=== PATIENT | male | born 1955 | race Caucasian/White ===

== ENCOUNTER → 2018-10-30 08:52 | Outpatient (CLI) | payer MEDICARE, SELFPAY | PROVIDERS: PCP Nurse Practitioner; Visit Provider Physical Medicine & Rehabilitation | DX: M54.5 Low back pain (principal); Z53.20 Procedure and treatment not carried out because of patient's decision for unspecified reasons ==

== ENCOUNTER → 2019-08-06 13:13 | Outpatient (CLI) | payer MEDICARE, SELFPAY | PROVIDERS: PCP Nurse Practitioner; Visit Provider Physical Medicine & Rehabilitation | DX: M46.97 Unspecified inflammatory spondylopathy, lumbosacral region (principal); Z53.20 Procedure and treatment not carried out because of patient's decision for unspecified reasons ==

== ENCOUNTER → 2021-10-12 11:40 | Outpatient (CLI) | payer MEDICARE, SELFPAY | PROVIDERS: PCP Internal Medicine; Referring Provider Physical Medicine & Rehabilitation; Visit Provider Physical Medicine & Rehabilitation | DX: M48.02 Spinal stenosis, cervical region (principal); Z53.20 Procedure and treatment not carried out because of patient's decision for unspecified reasons ==

== ENCOUNTER → 2023-05-16 15:56 | Outpatient (CLI) | payer MEDICARE, SELFPAY ==
[2023-05-16 16:55] LABS: Hematocrit 44.8 % (41-53); Hemoglobin 15.1 g/dL (13.5-17.5); Mean Corpuscular HGB Conc 33.8 % (30-36); Mean Corpuscular Hemoglobin 29.2 PG (26-34); Mean Corpuscular Volume 86.4 fL (80-100); Platelet Count 326 X10^3/uL (150-400); Red Blood Cell Count 5.18 X10^6/uL (4.5-5.9); Red Cell Distribution Width 16.3 % (11.6-14.8)
[2023-05-16 17:15] LABS: Alanine Aminotransferase 19 IU/L (<50); Albumin 4.2 g/dL (3.5-5.0); Albumin Globulin Ratio 1.2 (1.0-2.8); Alkaline Phosphatase 79 U/L (38-126); Aspartate Aminotransferase 23 IU/L (17-59); BUN Creatinine Ratio 22.9 (6-22); Bilirubin Total 0.4 mg/dL (0.2-1.3); Blood Urea Nitrogen 24 mg/dL (9-20); Calcium 9.9 mg/dL (8.4-10.2); Carbon Dioxide 27 mmol/L (22-32); Chloride 102 mmol/L (98-107); Cholesterol 258 mg/dL (140-199); Estimated Glomerular Filt Rate > 60 mL/min (>60); Globulin 3.5 g/dL (1.7-4.1); Glucose 86 mg/dL (80-110); HDL Cholesterol 39 mg/dL (40-60); HEMOLYSIS < 15 (0-50); LDL Cholesterol Calculated 173 mg/dL (<100); Potassium 4.6 mmol/L (3.4-5.1); Sodium 135 mmol/L (137-145); Total Protein 7.7 g/dL (6.3-8.2); Triglycerides 230 mg/dL (35-150)
[2023-05-16 17:45] LABS: Prostate Specific Antigen 2.42 ng/mL (0.10-4.00)
[2023-05-16 17:53] LABS: TSH w/ Reflex to FT4 1.16 uIU/mL (0.47-4.68)
== END ==
PROVIDERS: PCP Internal Medicine; Referring Provider Internal Medicine; Visit Provider Internal Medicine
DX: D75.1 Secondary polycythemia (principal); E78.2 Mixed hyperlipidemia; I25.10 Atherosclerotic heart disease of native coronary artery without angina pectoris
CPT/HCPCS: 36415; 80053; 80061; 84153; 84443; 85027

== ENCOUNTER → 2023-06-16 09:33 | Outpatient (CLI) | payer OTHER, SELFPAY ==
[2023-06-16 10:16] LABS: Add Manual Diff / Slide Review NO; Basophils Absolute Auto 100 /uL (0-100); Basophils Percent Auto 0.7 % (0-2); Eosinophils Absolute Auto 200 /uL (0-450); Eosinophils Percent Auto 1.5 % (2-4); Hemoglobin 16.2 g/dL (13.5-17.5); Lymphocytes Absolute Auto 2000 /uL (1100-4500); Lymphocytes Percent Auto 18.9 % (25-40); Mean Corpuscular HGB Conc 34.4 % (30-36); Mean Corpuscular Hemoglobin 29.6 PG (26-34); Mean Corpuscular Volume 86.1 fL (80-100); Monocytes Absolute Auto 900 /uL (0-900); Monocytes Percent Auto 8.3 % (3-14); Neutrophils Absolute Auto 7500 /uL (1500-7000); Neutrophils Percent Auto 70.6 % (50-75); Platelet Count 343 X10^3/uL (150-400); Red Blood Cell Count 5.46 X10^6/uL (4.5-5.9); Red Cell Distribution Width 16.2 % (11.6-14.8); White Blood Cell Count 10.6 X10^3/uL (4.5-11.0)
[2023-06-16 10:39] LABS: Alanine Aminotransferase 21 IU/L (<50); Albumin Globulin Ratio 1.2 (1.0-2.8); Alkaline Phosphatase 84 U/L (38-126); Aspartate Aminotransferase 23 IU/L (17-59); BUN Creatinine Ratio 17.9 (6-22); Bilirubin Total 0.7 mg/dL (0.2-1.3); Blood Urea Nitrogen 17 mg/dL (9-20); Calcium 9.4 mg/dL (8.4-10.2); Carbon Dioxide 24 mmol/L (22-32); Chloride 103 mmol/L (98-107); Estimated Glomerular Filt Rate > 60 mL/min (>60); Globulin 3.3 g/dL (1.7-4.1); Glucose 100 mg/dL (80-110); HEMOLYSIS < 15 (0-50); Sodium 138 mmol/L (137-145); Total Protein 7.3 g/dL (6.3-8.2)
[2023-06-16 15:20] LABS: Appearance Urine UA CLEAR; Bilirubin Urine UA NEGATIVE (NEGATIVE); Color Urine UA YELLOW; Glucose Urine UA NEGATIVE (Negative); Ketones Urine UA NEGATIVE (NEGATIVE); Leukocyte Esterase Urine UA NEGATIVE (NEGATIVE); Nitrite Urine UA NEGATIVE (Negative); Occult Blood Urine UA TRACE-INTACT (Negative); Protein Urine UA 1+ (Negative); Specific Gravity Urine UA <=1.005 (1.000-1.035); Urobilinogen Urine UA 0.2 E.U./dL (0.2)
[2023-06-16 15:29] LABS: Bacteria Urine None Seen; Culture Indicated Urine Cult Not Indicated; Hyaline Casts Urine 0-1/LPF; RBC Urine 0-1/HPF (0-5/HPF); Squamous Epithelial Cell Urine None Seen (0-5/HPF); WBC Urine 0-1/HPF (0-5/HPF)
== END ==
PROVIDERS: PCP Internal Medicine; Referring Provider Surgery; Visit Provider Surgery
DX: R10.30 Lower abdominal pain, unspecified (principal)
CPT/HCPCS: 36415; 80053; 81001; 85025; 99213

== ENCOUNTER → 2023-06-21 09:43 | Outpatient (CLI) | payer OTHER, SELFPAY ==
--- NOTE | 2023-06-21 11:00 | DI.CT.S_ITS ---
PROCEDURE: CT ABDOMEN PELVIS W CON INDICATIONS: Abdominal pain TECHNIQUE: After the administration of oral and intravenous contrast, axial sections were acquired from the lung bases to the pubic symphysis. Coronal and sagittal reformats were performed. For radiation dose reduction, the following was used: automated exposure control, adjustment of mA and/or kV according to patient size. COMPARISON:[facility], CT, ABDOMEN/PELVIS WITH CONTRAST, 11/11/2015, 14:46. FINDINGS: Image quality: Excellent. Lung bases: No suspicious nodule or consolidation. Emphysematous changes. Heart: No significant findings. ABDOMEN: Liver: No solid mass. Simple cyst in segment 2. Additional stable subcentimeter hypodensities are too small to characterize. Gallbladder: No radiopaque gallstones or wall thickening. Biliary ducts: No biliary dilation. Pancreas: No ductal dilation. Spleen: Size is within normal limits. Adrenal Glands: No adrenal nodules. Kidneys and Ureters: No hydronephrosis. No solid mass. Bilateral simple renal cysts. Additional subcentimeter cortical hypodensities bilaterally are too small to characterize, statistically cysts. No complex renal cystic lesion which requires follow up. Stomach and Bowel: No hiatal hernia. Stomach appears grossly normal. Small and large bowel is normal in caliber, without obstruction. Normal appendix (4/24). Sigmoid diverticulosis, without diverticulitis. No pneumatosis, pneumoperitoneum or portal venous gas. Peritoneum: No abnormal intraperitoneal fluid. No free air. Ventral Wall: Small fat containing umbilical hernia. Abdominal Nodes: No retroperitoneal or mesenteric adenopathy by size criteria. Vessels: Aorta and inferior vena cava are normal in size. Moderate to marked calcified and noncalcified plaque in the abdominal aorta and branch vessels, mildly increased compared to prior. Right common and external iliac and left common/proximal external iliac stents are patent with areas of mural thrombus with no high-grade stenosis. Proximal mesenteric and renal arterial vessels are patent. Patent hepatic, portal, splenic and bilateral renal veins. Circum aortic left renal vein, normal variant. PELVIS: Pelvic Organs: Mild prostatomegaly. Bladder: Unremarkable. Pelvic Nodes: No enlarged lymph nodes. Miscellaneous: No inguinal hernias are seen. Bones: No acute fractures. No aggressive appearing lytic or blastic osseous lesions. Mild multilevel degenerative changes of the spine. IMPRESSION: 1. No acute pathology in the abdomen or pelvis. 2. Sigmoid diverticulosis, without diverticulitis. 3. Bilateral iliac stents are patent with no high-grade stenosis. Moderate to marked atherosclerotic calcification of the abdominal aorta, mildly increased compared to prior. 4. Emphysema in the lung bases. Dictated by: Sangeetha Barnett M.D. on 06/21/2023 at 16:25 Approved by: Sangeetha Barnett M.D. on 06/21/2023 at 16:35
== END ==
PROVIDERS: PCP Internal Medicine; Referring Provider Surgery; Visit Provider Surgery
DX: I70.0 Atherosclerosis of aorta (principal); K57.30 Diverticulosis of large intestine without perforation or abscess without bleeding; R10.9 Unspecified abdominal pain; J43.9 Emphysema, unspecified
CPT/HCPCS: 74177; Q9967

== ENCOUNTER → 2023-11-22 09:11 | Outpatient (CLI) | payer MEDICARE, SELFPAY ==
[2023-11-22 10:25] LABS: Hematocrit 46.6 % (41-53); Hemoglobin 15.8 g/dL (13.5-17.5); Mean Corpuscular HGB Conc 33.9 % (30-36); Mean Corpuscular Hemoglobin 28.7 PG (26-34); Mean Corpuscular Volume 84.6 fL (80-100); Platelet Count 327 X10^3/uL (150-400); Red Cell Distribution Width 18.6 % (11.6-14.8); White Blood Cell Count 10.1 X10^3/uL (4.5-11.0)
[2023-11-22 10:37] LABS: Appearance Urine UA CLEAR; Bilirubin Urine UA NEGATIVE (NEGATIVE); Color Urine UA YELLOW; Glucose Urine UA NEGATIVE (Negative); Ketones Urine UA NEGATIVE (NEGATIVE); Leukocyte Esterase Urine UA NEGATIVE (NEGATIVE); Nitrite Urine UA NEGATIVE (Negative); Occult Blood Urine UA NEGATIVE (Negative); Protein Urine UA 2+ (Negative); Specific Gravity Urine UA >=1.030 (1.000-1.035); Urobilinogen Urine UA 0.2 E.U./dL (0.2); pH Urine UA 5.5 (4.5-8.0)
[2023-11-22 10:57] LABS: Bacteria Urine Occasional (0-1); Culture Indicated Urine Cult Not Indicated; Mucus Urine 1+ (Negative); RBC Urine None Seen (0-5/HPF); Squamous Epithelial Cell Urine None Seen (0-5/HPF); Urine Volume 10mL (spun); WBC Urine None Seen (0-5/HPF)
[2023-11-22 11:10] LABS: Alanine Aminotransferase 22 IU/L (<50); Albumin 4.2 g/dL (3.5-5.0); Albumin Globulin Ratio 1.3 (1.0-2.8); Alkaline Phosphatase 82 U/L (38-126); Aspartate Aminotransferase 24 IU/L (17-59); BUN Creatinine Ratio 22.1 (6-22); Bilirubin Total 0.5 mg/dL (0.2-1.3); Blood Urea Nitrogen 23 mg/dL (9-20); Calcium 9.5 mg/dL (8.4-10.2); Carbon Dioxide 24 mmol/L (22-32); Chloride 108 mmol/L (98-107); Cholesterol 270 mg/dL (140-199); Estimated Glomerular Filt Rate > 60 mL/min (>60); Globulin 3.2 g/dL (1.7-4.1); Glucose 91 mg/dL (80-110); HDL Cholesterol 50 mg/dL (40-60); HEMOLYSIS < 15 (0-50); LDL Cholesterol Calculated 197 mg/dL (<100); Potassium 4.7 mmol/L (3.4-5.1); Sodium 140 mmol/L (137-145); Total Protein 7.4 g/dL (6.3-8.2); Triglycerides 117 mg/dL (35-150)
[2023-11-22 11:38] LABS: Prostate Specific Antigen 3.08 ng/mL (0.10-4.00)
== END ==
PROVIDERS: PCP Internal Medicine; Referring Provider Internal Medicine; Visit Provider Internal Medicine
DX: I25.10 Atherosclerotic heart disease of native coronary artery without angina pectoris (principal); R39.15 Urgency of urination; E78.2 Mixed hyperlipidemia
CPT/HCPCS: 36415; 80053; 80061; 81001; 84153; 85027

== ENCOUNTER → 2023-11-28 15:44 | Outpatient (CLI) | payer MEDICARE, SELFPAY ==
--- NOTE | 2023-11-28 15:45 | DI.CT.S_ITS ---
PROCEDURE: CT ANGIO ABD AORTA RUNOFF INDICATIONS: PAD TECHNIQUE: After the administration of intravenous contrast, 2.5 mm sections acquired from T12 to the feet, with optional delayed image acquisition from the knees to the feet. 3-dimensional maximum intensity projection (MIP) coronal and sagittal reformats, and/or 3-dimensional volume rendering reformatting was then performed. For radiation dose reduction, the following was used: automated exposure control. COMPARISON: None. FINDINGS: Image Quality: Diagnostic. Evaluation of the upper abdomen is limited secondary to respiratory motion. Abdominal aorta: Marked atherosclerotic calcification of the abdominal aorta with calcified and noncalcified plaque. No abdominal aortic aneurysm or dissection. Splanchnic vessels: Celiac artery, superior mesenteric artery bilateral renal arteries and inferior mesenteric artery are patent. Mild ostial stenoses. Accessory right lower pole renal artery which is patent. Right lower extremity: Marked atherosclerotic calcification of the common and external iliac arteries. Patent stent in the common iliac and external iliac artery. Right internal iliac artery is chronically occluded. Right distal external iliac artery is diminutive in caliber with moderate atherosclerotic predominantly noncalcified plaque. Common femoral artery is patent with moderate calcified and noncalcified atherosclerotic plaque. Profundus a is patent with mild multifocal stenoses. Proximal SFA demonstrates a focal moderate stenosis of approximately 50% (4/206). Proximal SFA is diminutive in caliber. Mid SFA is occluded (4/257). The mid to distal SFA reconstitutes via collaterals an is diminutive in caliber throughout its course (4/281). Popliteal artery is patent with mild atherosclerotic plaque. No high-grade stenosis. Below the knee runoff demonstrates patent [employer] and peroneal artery with scattered multifocal stenoses. The dorsalis pedis and distal posterior tibial artery are patent below the ankle mortise. Left lower extremity: Marked atherosclerotic calcification of the common and external iliac arteries. Patent common iliac artery/external iliac artery stent. Internal iliac artery is chronically occluded. Distal external iliac artery is diminutive in caliber with moderate atherosclerosis. Common femoral artery is patent with moderate atherosclerosis. Profundus patent with mild multifocal stenoses. Short segment patent proximal SFA with severe multifocal stenoses. Mid to distal SFA is chronically occluded. Distal SFA is reconstituted via profundal collaterals and is diminutive in caliber. Popliteal artery is patent with a focal moderate stenosis (4/381). Below the knee runoff demonstrates patent [employer] and peroneal artery with scattered multifocal stenoses. The dorsalis pedis and distal posterior tibial artery are patent below the ankle mortise. Lower Chest: Dependent atelectasis. Emphysematous changes. ABDOMEN: Arterial phase imaging limits evaluation of the visceral organs. Liver: No solid mass. Gallbladder: No radiopaque gallstones or wall thickening. Biliary ducts: No biliary dilation. Pancreas: No ductal dilation. Spleen: Size is within normal limits. Adrenal Glands: No adrenal nodules. Kidneys and Ureters: No hydronephrosis. No solid mass. No complex renal cystic lesion which requires follow up. Simple cysts in the bilateral kidneys. Subcentimeter cortical hypodensities are too small to characterize, statistically cysts. No complex cystic lesions which require follow-up. Stomach and Bowel: Normal colonic caliber, without significant wall thickening. Colonic diverticulosis, without diverticulitis. Peritoneum: No abnormal intraperitoneal fluid. No free air. Ventral Wall: No hernia. Abdominal Nodes: No retroperitoneal or mesenteric adenopathy by size criteria. Vessels: Aorta and inferior vena cava are normal in size. PELVIS: Pelvic Organs: Unremarkable. Bladder: Unremarkable. Pelvic Nodes: No enlarged lymph nodes. Miscellaneous: No inguinal hernias are seen. Lipoma in the right anterior thigh measuring 7.5 cm in craniocaudal dimension (5/140). Bones: No aggressive osseous abnormality. No acute fractures. Moderate multilevel degenerative changes with levoconvex curvature centered at L3. IMPRESSION: 1. Right lower extremity: Extensive atherosclerotic disease, as described above. -patent common iliac/external iliac artery stent -mid SFA is chronically occluded. SFA is diminutive in caliber, throughout its course. -patent 3 vessel runoff. 2. Left lower extremity: Extensive atherosclerotic disease, as described above. -patent common iliac/external iliac artery stent -SFA is occluded throughout most of its course with distal reconstitution via profundal collaterals. -patent 3 vessel runoff. 3. Colonic diverticulosis, without diverticulitis. Dictated by: Sangeetha Barnett M.D. on 11/28/2023 at 16:57 Approved by: Sangeetha Barnett M.D. on 11/28/2023 at 17:09
== END ==
PROVIDERS: PCP Internal Medicine; Referring Provider Internal Medicine; Visit Provider Internal Medicine
DX: I70.203 Unspecified atherosclerosis of native arteries of extremities, bilateral legs (principal); K57.90 Diverticulosis of intestine, part unspecified, without perforation or abscess without bleeding
CPT/HCPCS: 75635; Q9967

== ENCOUNTER 2023-12-14 08:50 | Emergency (ER) | payer MEDICARE, SELFPAY ==
[2023-12-14] VITALS (13 sets, daily range): BP systolic 135–186; BP diastolic 61–87; PULSE 54–66; RESP 14–16; TEMP 36.5; O2SAT 78–100; BMI 23.6
--- NOTE | 2023-12-14 09:16 | DI.RAD.S_ITS ---
PROCEDURE: XR CHEST 1V INDICATIONS: chest pain TECHNIQUE: One view of the chest was acquired. COMPARISON: None. FINDINGS: Surgical changes and devices: None. Lungs and pleura: Lungs are clear. No pleural effusions or pneumothorax. Mediastinum: Mediastinal contours appear normal. Heart size is normal. Bones and chest wall: No suspicious bony lesions. Overlying soft tissues appear unremarkable. IMPRESSION: No acute cardiopulmonary abnormality is seen. Dictated by: Wayne Suarez M.D. on 12/14/2023 at 9:34 Approved by: Wayne Suarez M.D. on 12/14/2023 at 9:35
[2023-12-14 09:23] LABS: INR 0.9 (0.9-1.3); Prothrombin Time 10.3 SECONDS (9.4-12.5)
--- NOTE | 2023-12-14 09:23 | DI.CT.S_ITS ---
PROCEDURE: CT HEAD/BRAIN WO CON INDICATIONS: vertigo, dizziness TECHNIQUE: Noncontrast 4.5 mm thick angled axial sections acquired from the foramen magnum to the vertex, with coronal and sagittal reformats. For radiation dose reduction, the following was used: automated exposure control, adjustment of mA and/or kV according to patient size. COMPARISON: None. FINDINGS: Image quality: Diagnostic. CSF spaces: Basal cisterns are patent. No extra-axial fluid collections. The ventricles are symmetric in size and shape. Brain: No intracranial bleeds or masses. There is cerebral volume loss for age, with resultant ventricular and sulcal prominence. There are periventricular and deep white matter chronic small vessel ischemic changes. There is intracranial internal carotid artery atherosclerosis. Skull and face: Calvarium and visualized facial bones appear intact, without suspicious lesions. Sinuses: Visualized sinuses and mastoids are clear. IMPRESSION: No cause for patient's symptoms is identified. No acute intracranial pathology. Dictated by: Wayne Suarez M.D. on 12/14/2023 at 9:47 Approved by: Wayne Suarez M.D. on 12/14/2023 at 9:48
[2023-12-14 09:26] LABS: PTT Partial Thromboplastin Tim 25 SECONDS (25.1-36.5)
[2023-12-14 09:29] LABS: Alanine Aminotransferase 23 IU/L (<50); Albumin 4.5 g/dL (3.5-5.0); Albumin Globulin Ratio 1.4 (1.0-2.8); Alkaline Phosphatase 78 U/L (38-126); BUN Creatinine Ratio 20.4 (6-22); Bilirubin Total 0.8 mg/dL (0.2-1.3); Blood Urea Nitrogen 20 mg/dL (9-20); Calcium 8.8 mg/dL (8.4-10.2); Carbon Dioxide 25 mmol/L (22-32); Chloride 107 mmol/L (98-107); Creatine Kinase 85 U/L (55-170); Estimated Glomerular Filt Rate > 60 mL/min (>60); Globulin 3.3 g/dL (1.7-4.1); Glucose 103 mg/dL (80-110); Lipase 155 U/L (23-300); Sodium 138 mmol/L (137-145); Total Protein 7.8 g/dL (6.3-8.2)
[2023-12-14 09:30] LABS: HEMOLYSIS 68 (0-50)
[2023-12-14 09:31] LABS: Potassium 4.8 mmol/L (3.4-5.1)
[2023-12-14 09:33] LABS: Aspartate Aminotransferase 29 IU/L (17-59); Magnesium 2.1 mg/dL (1.6-2.3)
[2023-12-14 09:35] LABS: Add Manual Diff / Slide Review NO; Basophils Absolute Auto 100 /uL (0-100); Basophils Percent Auto 0.6 % (0-2); Eosinophils Absolute Auto 200 /uL (0-450); Eosinophils Percent Auto 1.9 % (2-4); Hemoglobin 17.2 g/dL (13.5-17.5); Lymphocytes Absolute Auto 2200 /uL (1100-4500); Lymphocytes Percent Auto 20.9 % (25-40); Mean Corpuscular HGB Conc 33.7 % (30-36); Mean Corpuscular Hemoglobin 28.8 PG (26-34); Mean Corpuscular Volume 85.5 fL (80-100); Monocytes Absolute Auto 1000 /uL (0-900); Monocytes Percent Auto 9.7 % (3-14); Neutrophils Absolute Auto 7000 /uL (1500-7000); Neutrophils Percent Auto 66.9 % (50-75); Platelet Count 240 X10^3/uL (150-400); Red Blood Cell Count 5.97 X10^6/uL (4.5-5.9); Red Cell Distribution Width 17.8 % (11.6-14.8); White Blood Cell Count 10.4 X10^3/uL (4.5-11.0)
[2023-12-14 09:39] LABS: Troponin I < 0.012 ng/mL (0.01-0.034)
[2023-12-14 09:39] LABS: Urine Volume 10mL (spun)
[2023-12-14 09:41] LABS: Bacteria Urine None Seen; RBC Urine 0-1/HPF (0-5/HPF); Squamous Epithelial Cell Urine None Seen (0-5/HPF); WBC Urine None Seen (0-5/HPF)
[2023-12-14] MEDS: MECLIZINE HCL 12.5 MG TABLET 50 MG PO (09:50)
--- NOTE | 2023-12-14 10:00 | ED.DIZZY ---
HPI - Dizziness General Chief Complaint: Dizziness Stated Complaint: Vertigo/Dizziness Time Seen by Provider: 12/14/23 09:23 Mode of arrival: EMS History of Present Illness HPI Narrative: 68-year-old with history of peripheral vascular disease status post bilateral iliac stenting, history of polycythemia, complains of recent episode yesterday of dizziness, slight spinning sensation, resolved spontaneously, no further current through the day, woke up this morning 530, felt well, 630 this morning started feeling dizzy with spinning sensation, has felt unsteady with his gait, some nausea without emesis, had brief decreased responsiveness requiring family member to gently shake him, he responded quickly, no incontinence to urine or stool, no shaking episodes. No focal weakness to face arm or leg, no visual field deficits, difficulty with walking due to dizziness when he moves his body or his head. No previous known stroke or TIA, no brain surgeries or trauma known, takes aspirin but no other blood thinner medications. No recent cough cold fever chills shortness of breath, no history of allergies or rhinorrhea or nasal congestion. No changes in medications. Related Data Home Medications Medication Instructions Recorded Confirmed aspirin 81 mg tablet,delayed 81 mg PO DAILY 01/18/22 11/22/23 release triamcinolone acetonide 55 mcg 1 spray intranasal DAILY 01/18/22 11/22/23 nasal spray aerosol (Nasacort) Previous Rx's Medication Instructions Recorded rosuvastatin 20 mg tablet 20 mg PO DAILY #90 tabs 11/22/23 meclizine 25 mg tablet 25 mg PO TID 7 days #21 tabs 12/14/23 Allergies Allergy/AdvReac Type Severity Reaction Status Date / Time erythromycin base Allergy Severe Hives Verified 11/22/23 07:39 [From Erythrocin] codiene AdvReac Severe Nausea Uncoded 11/22/23 07:39 Review of Systems Review of Systems Narrative: as per HPI Patient History Medical History (Updated 12/14/23 @ 12:52 by Flip Rodriguez MD) Urinary urgency Peripheral arterial disease Generalized anxiety disorder Cervical radiculopathy Cervicalgia Chronic low back pain Polycythemia (~2017) Ocular migraine Tobacco use Coronary artery disease Allergic rhinitis GERD without esophagitis Mixed hyperlipidemia Surgical History Anesthesia S/P coronary artery stent placement Family History Father Cancer Brother Cancer Social History details: Partner, two grown daughters, Vericept Smoking Status: Current every day smoker Smoking Status: Current every day smoker Exam Narrative Exam Narrative: GENERAL: Well-developed patient, in mild distress. HEAD: Atraumatic. Normocephalic. EYES: Pupils equal round and reactive. Extraocular motions intact. No scleral icterus. No injection or drainage. ENT: Nose without bleeding, purulent drainage. Throat without erythema, tonsillar hypertrophy or exudate. Airway patent. NECK: Trachea midline. Non tender CARDIOVASCULAR: Regular rate and rhythm without murmurs, gallops, or rubs. RESPIRATORY: Clear to auscultation. Breath sounds equal bilaterally. No wheezes, rales, or rhonchi. GASTROINTESTINAL: Abdomen soft, non-tender, nondistended. EXTREMITIES: No edema or joint tenderness. BACK: Nontender without deformity or crepitance. No flank tenderness. NEURO: AOx3. Cranial nerves 2-12 intact. Has dizziness vertigo symptoms with isolated head movements and changes in truncal position. Flnqaa-fv-ovvg testing normal. Motor 5/5 bilateral upper extremities. Motor 5/5 bilateral lower extremities. SKIN: No rash or erythema of visible areas Initial Vital Signs Initial Vital Signs: Vital Signs Pulse Rate 62 12/14/23 08:53 Blood Pressure 176/79 H 12/14/23 08:53 Pulse Oximetry 99 12/14/23 08:53 Course Orders Ordered: Discontinued Medications Diphenhydramine HCl (Diphenhydramine 50 Mg/Ml Vial) 25 mg IV NOW ONE Stop: 12/14/23 12:08 Last Admin: 12/14/23 12:57 Dose: Not Given Documented By: GLORIA Sodium Chloride (Normal Saline 0.9%) 1,000 mls @ 500 mls/hr IV BOLUS ONE Stop: 12/14/23 12:18 Last Infusion: 12/14/23 12:41 Dose: Infused Documented By: Admin: 12/14/23 10:34 Dose: 500 mls/hr Documented By: VALERIE Lorazepam (Lorazepam 2 Mg/Ml Inj) 0.5 mg IV NOW ONE Stop: 12/14/23 12:08 Last Admin: 12/14/23 12:42 Dose: Not Given Documented By: GLORIA Meclizine HCl (Meclizine Hcl 12.5 Mg Tablet) 50 mg PO NOW ONE Stop: 12/14/23 09:25 Last Admin: 12/14/23 09:50 Dose: 50 mg Documented By: VALERIE Ondansetron HCl (Ondansetron 4 Mg/2 Ml Inj) 4 mg IV NOW ONE Stop: 12/14/23 10:22 Last Admin: 12/14/23 10:57 Dose: Not Given Documented By: VALERIE Vital Signs Vital signs: Vital Signs - 8 hr 12/14/23 08:53 12/14/23 08:53 12/14/23 09:00 Temperature Pulse Rate 62 Respiratory Rate Blood Pressure 176/79 H 166/87 H Pulse Oximetry 99 Oxygen Delivery Method 12/14/23 09:00 12/14/23 09:10 12/14/23 09:36 Temperature 97.7 F Pulse Rate 62 66 Respiratory Rate 16 Blood Pressure 166/87 H Pulse Oximetry 99 99 100 Oxygen Delivery Method Room Air 12/14/23 09:53 12/14/23 09:53 12/14/23 10:00 Temperature Pulse Rate 62 55 L Respiratory Rate Blood Pressure 149/70 H Pulse Oximetry 99 100 Oxygen Delivery Method 12/14/23 10:00 12/14/23 10:30 12/14/23 10:30 Temperature Pulse Rate 54 L Respiratory Rate Blood Pressure 146/71 H 135/61 Pulse Oximetry 99 Oxygen Delivery Method 12/14/23 11:00 12/14/23 11:00 12/14/23 11:34 Temperature Pulse Rate 57 L Respiratory Rate 15 Blood Pressure 175/75 H Pulse Oximetry 99 78 L Oxygen Delivery Method 12/14/23 11:37 12/14/23 11:37 12/14/23 11:40 Temperature Pulse Rate 56 L Respiratory Rate Blood Pressure 181/79 H 167/79 H Pulse Oximetry 99 Oxygen Delivery Method 12/14/23 11:40 12/14/23 12:00 12/14/23 12:00 Temperature Pulse Rate 55 L 56 L Respiratory Rate 15 Blood Pressure 186/85 H Pulse Oximetry 100 100 Oxygen Delivery Method MDM - Dizziness Lab Data Attestation: I reviewed the patient's lab results. 12/14/23 09:06 06/05/24 09:06 Labs: Lab Results 12/14/23 12/14/23 Range/Units 09:00 09:06 WBC 10.4 (4.5-11.0) X10^3/uL RBC 5.97 H (4.5-5.9) X10^6/uL Hgb 17.2 (13.5-17.5) g/dL Hct 51.0 (41-53) % MCV 85.5 (80-100) fL MCH 28.8 (26-34) PG MCHC 33.7 (30-36) % RDW 17.8 H (11.6-14.8) % Plt Count 240 (150-400) X10^3/uL Neut % (Auto) 66.9 (50-75) % Lymph % (Auto) 20.9 L (25-40) % [place] % (Auto) 9.7 (3-14) % Eos % (Auto) 1.9 L (2-4) % Baso % (Auto) 0.6 (0-2) % Neut # (Auto) 7000 (0272-3832) /uL Lymph # (Auto) 2200 (9091-7355) /uL [place] # (Auto) 1000 H (0-900) /uL Eos # (Auto) 200 (0-450) /uL Baso # (Auto) 100 (0-100) /uL PT 10.3 (9.4-12.5) SECONDS INR 0.9 (0.9-1.3) APTT 25 L (25.1-36.5) SECONDS Sodium 138 (137-145) mmol/L Potassium 4.8 (3.4-5.1) mmol/L Chloride 107 (98-107) mmol/L Carbon Dioxide 25 (22-32) mmol/L BUN 20 (9-20) mg/dL Creatinine 0.98 (0.66-1.25) mg/dL Estimated GFR > 60 (>60) mL/min BUN/Creatinine Ratio 20.4 (6-22) Glucose 103 (80-110) mg/dL Calcium 8.8 (8.4-10.2) mg/dL Magnesium 2.1 (1.6-2.3) mg/dL Total Bilirubin 0.8 (0.2-1.3) mg/dL AST 29 (17-59) IU/L ALT 23 (<50) IU/L Alkaline Phosphatase 78 (38-126) U/L Total Creatine Kinase 85 (55-170) U/L Troponin I < 0.012 (0.01-0.034) ng/mL Total Protein 7.8 (6.3-8.2) g/dL Albumin 4.5 (3.5-5.0) g/dL Globulin 3.3 (1.7-4.1) g/dL Albumin/Globulin Ratio 1.4 (1.0-2.8) Lipase 155 (23-300) U/L Urine RBC 0-1/hpf (0-5/HPF) Urine WBC None seen (0-5/HPF) Ur Squamous Epith Cells None seen (0-5/HPF) Urine Bacteria None seen (None) Vol Urine Centrifuged 10ml (spun) Urine Dip Bedside Urine Glucose Negative Bedside Urine Bilirubin - Negative Bedside Urine Ketone - Negative Urine Specific [place] 1.005 Bedside Urine Occult Blood +/- Bedside Urine pH 6.0 Bedside Urine Protein +/- 15 Bedside Urine Urobilinogen - Negative Bedside Urine Nitrite - Negative Bedside Urine Leukocytes - Negative Esterase Imaging Data Chest x-ray: Radiologist's Impression: [address] [address] XRay Report Signed Patient: Yaron Long MR#: [id number] : 1955 Acct:[id number] Age/Sex: 68 / M Date of Service: 12/14/23 Loc: ED Accession Number: [id number] Procedure: XR chest 1V Ordering Provider: Flip Rodriguez MD PROCEDURE: XR CHEST 1V INDICATIONS: chest pain TECHNIQUE: One view of the chest was acquired. COMPARISON: None. FINDINGS: Surgical changes and devices: None. Lungs and pleura: Lungs are clear. No pleural effusions or pneumothorax. Mediastinum: Mediastinal contours appear normal. Heart size is normal. Bones and chest wall: No suspicious bony lesions. Overlying soft tissues appear unremarkable. IMPRESSION: No acute cardiopulmonary abnormality is seen. Dictated by: Wayne Suarez M.D. on 12/14/2023 at 9:34 Approved by: Wayne Suarez M.D. on 12/14/2023 at 9:35 CT scan - head: Radiologist's Impression: [address] [address] [address] Scan Report Signed Patient: Yaron Long MR#: [id number] : 1955 Acct:[id number] Age/Sex: 68 / M Date of Service: 12/14/23 Loc: ED Accession Number: [id number] Procedure: CT head/brain wo con Ordering Provider: Flip Rodriguez MD PROCEDURE: CT HEAD/BRAIN WO CON INDICATIONS: vertigo, dizziness TECHNIQUE: Noncontrast 4.5 mm thick angled axial sections acquired from the foramen magnum to the vertex, with coronal and sagittal reformats. For radiation dose reduction, the following was used: automated exposure control, adjustment of mA and/or kV according to patient size. COMPARISON: None. FINDINGS: Image quality: Diagnostic. CSF spaces: Basal cisterns are patent. No extra-axial fluid collections. The ventricles are symmetric in size and shape. Brain: No intracranial bleeds or masses. There is cerebral volume loss for age, with resultant ventricular and sulcal prominence. There are periventricular and deep white matter chronic small vessel ischemic changes. There is intracranial internal carotid artery atherosclerosis. Skull and face: Calvarium and visualized facial bones appear intact, without suspicious lesions. Sinuses: Visualized sinuses and mastoids are clear. IMPRESSION: No cause for patient's symptoms is identified. No acute intracranial pathology. Dictated by: Wayne Suarez M.D. on 12/14/2023 at 9:47 Approved by: Wayne Suarez M.D. on 12/14/2023 at 9:48 CT Angio Head and Neck: Radiologist's Impression: [address] [address] [address] Scan Report Signed Patient: Yaron Long MR#: [id number] : 1955 Acct:[id number] Age/Sex: 68 / M Date of Service: 12/14/23 Loc: ED Accession Number: [id number] Procedure: CT angio head and neck Ordering Provider: Flip Rodriguez MD PROCEDURE: CT ANGIO HEAD AND NECK INDICATIONS: acute dizzy/vertigo TECHNIQUE: After the administration of intravenous contrast, 1 mm thick sections acquired from the aortic arch through the [place]. 3-dimensional pcgdvky-cnwwminuu-adclysejzf (MIP) and/or volume rendering reformats were acquired of the central intracranial vasculature and neck separately. For radiation dose reduction, the following was used: automated exposure control, adjustment of mA and/or kV according to patient size. COMPARISON: None. FINDINGS: Image quality: Diagnostic. BRAIN: Please refer to same day CT of the head HEAD CT ANGIOGRAPHY: Anterior circulation: Intracranial internal carotid arteries are normal in size and flow with atherosclerotic vascular calcifications. The flow within the paired anterior cerebral arteries is normal and symmetric. The flow within the middle cerebral arteries is normal and symmetric. The anterior communicating artery is seen. No aneurysms are seen. Posterior circulation: Visualized portions of the vertebral arteries demonstrate normal caliber, and join to form a normal appearing basilar artery. Flow within the posterior cerebral arteries is normal and symmetric. No aneurysms are seen. NECK CT ANGIOGRAPHY: Carotid system: The great vessels demonstrate a conventional anatomy as they arise from the aortic arch with atherosclerotic vascular calcifications. Moderate stenosis of the left subclavian artery proximally. Moderate stenosis of the right subclavian artery after the takeoff of the vertebral artery. The common carotid arteries demonstrate normal caliber and courses. The bifurcation regions demonstrate coarse calcifications with less than 50% stenosis. The internal carotid arteries demonstrate normal calibers and courses. Posterior circulation: Moderate stenosis at the origins of both vertebral arteries. The more superior extracranial portions of both vertebral arteries also demonstrate normal courses and calibers. They join to form a normal appearing basilar artery. Soft tissues: Visualized neck soft tissues demonstrate no suspicious abnormalities. Centrilobular emphysematous changes involving the visualized lungs. Ground-glass opacity at the right apex versus sub solid nodule. The ground-glass measures 1.8 cm, the solid component measures 5 mm. Bones: No suspicious bony lesions. Degenerative changes of the spine. Visualized cervical spine appears normally aligned. IMPRESSION: No significant intracranial arterial abnormality is seen. Moderate stenosis involving the proximal subclavian arteries bilaterally and origins of the bilateral vertebral arteries. Otherwise, the arteries of the neck are patent and normal in caliber. Ground-glass opacity at the right apex versus subsolid nodule with ground-glass component measuring 1.8 cm and the solid component measuring 5 mm. Recommend follow-up chest CT in 3 months. Any quantitative measurements of stenosis were performed using NASCET criteria. Dictated by: Wayne Suarez M.D. on 12/14/2023 at 11:30 Approved by: Wayne Suarez M.D. on 12/14/2023 at 11:39 ECG Data Attestation: I personally reviewed and interpreted this ECG as follows: Interpretation: Normal sinus rhythm with rate of 61, no obvious ST segment elevation or depression changes. DC 138, QRS 92, QTC 404. MDM Narrative Medical decision making narrative: 68-year-old male with dizziness, afebrile, EKG shows normal sinus rhythm without obvious ischemic changes, troponin negative, electrolytes unremarkable, CBC unremarkable, chest x-ray negative, CT head negative, trial of meclizine. Abrupt onset and some syncopal symptoms, consider neurology consultation. CTA head and neck vessels negative. Neurology consultation pending. Case discussed with Neurology at [facility] Dr. Wasserman, feels that this is worse with changes in position position and better at rest, with good bzdzxl-is-szir testing, suspects peripheral cause, doubts central cause, advises trial of meclizine. Hold further imaging and workup for now. Patient feels better with oral meclizine only, other medications canceled. We will discharge patient on meclizine for the next few days. Follow up with the PCP in the next couple of days advised, return precautions discussed. Home with family. Instructed not to drive or operate machinery until symptoms resolved 1335, blood pressure on discharge noted to have 160 on one arm, 190 on the other arm, no chest pain, consideration for CT angiogram of the chest, patient declined, he will follow up further as an outpatient. Critical Care Time Critical Care Time Critical Care Time: Yes Total Critical Care Time: 31 Attestation: The high probability of a clinically significant, sudden or life threatening deterioration of the [cerebrovascular, neurologic, cardiopulmonary] system(s) required my full and direct attention, intervention and personal management. The aggregate critical care time was [31] minutes. This time is in addition to time spent performing reported procedures but includes the following: [x] Data Review and interpretation [x] Patient assessment and monitoring of vital signs [x] Documentation [x] Medication orders and management Discharge Plan Departure Patient Disposition: Home Clinical Impression: Dizziness, Vertigo Instructions: DI for Vertigo Activity Restrictions/Additional Instructions: Dizziness and spinning symptoms this morning, good ebdgrg-bh-kugj testing, CT head noncontrast brain imaging showed no acute changes per radiologist's report, CT angiogram neck vessels showed no narrowing or thrombosis changes. Case discussed with neurologist Dr. Andrés Daniel at [facility], who felt symptoms were consistent with peripheral vestibular symptoms, not concerning at this time for central stroke. He suggested a trial of meclizine which was given, and in fact he had significant improvement in symptoms. Avoid driving and spinning and rapid changes in head position and body position, as they can cause increased spinning sensation, leading to a fall. Consider taking meclizine for the next week or so, as per neurologist recommendation. Follow up with your regular provider in the next 2-3 days to reassess symptoms. Return to this/nearest emergency department for any change worsening symptoms or any concerns prior Prescriptions: New meclizine 25 mg tablet 25 mg PO TID 7 Days Qty: 21 0RF No Action aspirin 81 mg tablet,delayed release (DR/EC) 81 mg PO DAILY triamcinolone acetonide [Nasacort] 55 mcg aerosol,spray 1 spray intranasal DAILY Rx Instructions: administer into each nostril rosuvastatin 20 mg tablet 20 mg PO DAILY Qty: 90 3RF Referrals: Mateo Mello MD [Primary Care Provider] - Stand Alone Forms: Patient Portal/API
--- NOTE | 2023-12-14 10:19 | DI.CT.S_ITS ---
PROCEDURE: CT ANGIO HEAD AND NECK INDICATIONS: acute dizzy/vertigo TECHNIQUE: After the administration of intravenous contrast, 1 mm thick sections acquired from the aortic arch through the [place]. 3-dimensional dvjsjpq-ahruqrxjc-fmufimdpom (MIP) and/or volume rendering reformats were acquired of the central intracranial vasculature and neck separately. For radiation dose reduction, the following was used: automated exposure control, adjustment of mA and/or kV according to patient size. COMPARISON: None. FINDINGS: Image quality: Diagnostic. BRAIN: Please refer to same day CT of the head HEAD CT ANGIOGRAPHY: Anterior circulation: Intracranial internal carotid arteries are normal in size and flow with atherosclerotic vascular calcifications. The flow within the paired anterior cerebral arteries is normal and symmetric. The flow within the middle cerebral arteries is normal and symmetric. The anterior communicating artery is seen. No aneurysms are seen. Posterior circulation: Visualized portions of the vertebral arteries demonstrate normal caliber, and join to form a normal appearing basilar artery. Flow within the posterior cerebral arteries is normal and symmetric. No aneurysms are seen. NECK CT ANGIOGRAPHY: Carotid system: The great vessels demonstrate a conventional anatomy as they arise from the aortic arch with atherosclerotic vascular calcifications. Moderate stenosis of the left subclavian artery proximally. Moderate stenosis of the right subclavian artery after the takeoff of the vertebral artery. The common carotid arteries demonstrate normal caliber and courses. The bifurcation regions demonstrate coarse calcifications with less than 50% stenosis. The internal carotid arteries demonstrate normal calibers and courses. Posterior circulation: Moderate stenosis at the origins of both vertebral arteries. The more superior extracranial portions of both vertebral arteries also demonstrate normal courses and calibers. They join to form a normal appearing basilar artery. Soft tissues: Visualized neck soft tissues demonstrate no suspicious abnormalities. Centrilobular emphysematous changes involving the visualized lungs. Ground-glass opacity at the right apex versus sub solid nodule. The ground-glass measures 1.8 cm, the solid component measures 5 mm. Bones: No suspicious bony lesions. Degenerative changes of the spine. Visualized cervical spine appears normally aligned. IMPRESSION: No significant intracranial arterial abnormality is seen. Moderate stenosis involving the proximal subclavian arteries bilaterally and origins of the bilateral vertebral arteries. Otherwise, the arteries of the neck are patent and normal in caliber. Ground-glass opacity at the right apex versus subsolid nodule with ground-glass component measuring 1.8 cm and the solid component measuring 5 mm. Recommend follow-up chest CT in 3 months. Any quantitative measurements of stenosis were performed using NASCET criteria. Dictated by: Wayne Suarez M.D. on 12/14/2023 at 11:30 Approved by: Wayne Saurez M.D. on 12/14/2023 at 11:39
[2023-12-14] MEDS: SODIUM CHLORIDE 0.9% 1,000 ML 500 ML IV (10:34)
--- NOTE | 2023-12-14 13:36 | PC.NURSE ---
The patient was concerned about blood pressure on his arm left arm of 198/88. His right arm pressure was taken and it was 164/73. Provider was made aware and the patient was offered to stay and receive further studies. He was informed that this could be due to a potentially dangerous condition. paitient declined further studies and wanted to go home
== END 2023-12-14 13:41 | disposition home or self-care (01) ==
PROVIDERS: Emergency Provider Emergency Medicine; PCP Internal Medicine
DX: R42 Dizziness and giddiness (principal); R07.9 Chest pain, unspecified
CPT/HCPCS: 36415; 70450; 70496; 70498; 71045; 80053; 81003; 81015; 82550; 83690; 83735; 84484; 85025; 85610; 85730; 87086; 93005; 96360; 96361; 99284; 99285; J1200; J2060; J2405; Q9967

== ENCOUNTER → 2024-11-05 17:07 | Outpatient (CLI) | payer MEDICARE, SELFPAY | PROVIDERS: PCP Internal Medicine; Visit Provider Nurse Practitioner Family | DX: S91.009A Unspecified open wound, unspecified ankle, initial encounter (principal); X58.XXXA Exposure to other specified factors, initial encounter | CPT/HCPCS: 87070; 87075; 87205 ==

== ENCOUNTER 2024-11-10 08:04 | Emergency (ER) | payer MEDICARE, SELFPAY ==
[2024-11-10 08:14] VITALS: BP 138/66; PULSE 71; RESP 16; TEMP 36.4; O2SAT 98; BMI 23.6
--- NOTE | 2024-11-10 09:11 | PC.NURSE ---
States 10 days ago he was bit by something. Pt reports he was seen at [facility] who cultured his wound and was given a cream. States cream has not done anything; reports the wound seems to be getting worse. Pt states he has been pouring hydrogen peroxide on wound and states he thinks that is helping--pt advised to withhold from hydrogen peroxide. Pt states wound culture was negative. Round red sensitive to touch wound; no open sores. Redness and skin flaking noted.
--- NOTE | 2024-11-10 09:47 | ED.WOUNDLAC ---
HPI - Wound/Laceration General Chief Complaint: Wound/Laceration Stated Complaint: bug bite on R ankle, occurred 7 days ago Time Seen by Provider: 11/10/24 09:37 Source: patient and RN notes reviewed Mode of arrival: Ambulatory Limitations: no limitations History of Present Illness HPI narrative: 69-year-old male no reported medical issues presents with complaint of concern of bug bite or other cause to his right ankle. Patient noticed a white spot about a week before 11/05/2024. Continue to grow and became red painful and itchy. Patient was seen at the walk-in clinic was given mupirocin and cephalexin. He was had about 5 days' worth and he states it seems to have grown a little bit. It is no longer red it has never had any drainage but it was still painful and has grown a little bit in size. He was also prescribed valacyclovir for possible shingles but patient states he did not think that it was shingles and did not take it. He has not had any fevers or systemic symptoms. There is no longer red that is little bit more bruise discoloration. He was using hydrogen peroxide on it but has stopped. He has been washing it daily. He was unsure did not see if he had a bite or something else that occurred other than there was a white head initially. States he was not on any daily medications. Has not allergy to erythromycin and codeine. Dr. Mello is his primary care physician. He does note he had a brown recluse bite when he was young and did have to have an excision of an area in the bottom of his foot. Related Data Home Medications Medication Instructions Recorded Confirmed aspirin 81 mg tablet,delayed 81 mg PO DAILY 01/18/22 10/08/24 release triamcinolone acetonide 55 mcg 1 spray intranasal DAILY 01/18/22 10/08/24 nasal spray aerosol (Nasacort) ezetimibe 10 mg tablet 10 mg PO DAILY 11/05/24 11/05/24 nitroglycerin 0.4 mg sublingual mg sublingual 11/05/24 11/05/24 tablet Previous Rx's Medication Instructions Recorded rosuvastatin 20 mg tablet 20 mg PO DAILY #90 tabs 11/22/23 cephalexin 500 mg capsule 500 mg PO QID 7 days #28 caps 11/05/24 mupirocin 2 % topical ointment 1 applic topical TID #15 grams 11/05/24 valacyclovir 1 gram tablet 1,000 mg PO TID 7 days #21 tabs 11/05/24 doxycycline hyclate 100 mg tablet 100 mg PO BID 7 days #14 tabs 11/10/24 Allergies Allergy/AdvReac Type Severity Reaction Status Date / Time erythromycin base Allergy Severe Hives Verified 11/05/24 16:56 [From Erythrocin] codiene AdvReac Severe Nausea Uncoded 11/05/24 16:56 Review of Systems Review of Systems ROS Unobtainable: All systems reviewed & are unremarkable except as noted in HPI and below Patient History Medical History Pulmonary nodule Urinary urgency Peripheral arterial disease Generalized anxiety disorder Cervical radiculopathy Cervicalgia Chronic low back pain Polycythemia (~2017) Ocular migraine Tobacco use Coronary artery disease Allergic rhinitis GERD without esophagitis Mixed hyperlipidemia Surgical History Anesthesia S/P coronary artery stent placement Family History Father Cancer Brother Cancer Social History details: Partner, two grown daughters, [employer] Smoking Status: Current every day smoker Smoking Status: Current every day smoker tobacco type: cigarettes Exam Narrative Exam Narrative: GENERAL: Alert and oriented x three, well-appearing male in mild distress HEENT: Head normocephalic, atraumatic, EOMI, pupils reactive, face symmetric, moist mucous membranes NECK: Supple, full range of motion CARDIOVASCULAR: Regular rate and rhythm without murmurs, rubs or gallops. RESPIRATORY: Breath sounds equal bilaterally, no wheezes rales or rhonchi. ABDOMEN: Soft, nontender. Normoactive bowel sounds all 4 quadrants. No guarding or rebound, rigidity, no mass : No CVA tenderness EXTREMITIES: Normal range of motion, no clubbing or edema. Neurovascularly intact. Patient has about a quarter-sized area on his right calf just lateral to the Achilles tendon, there some slight induration but it was actually more ecchymotic. There is no erythema. There was no drainage. There was no palpable fluctuance. There is a little bit of dried skin and hyperkeratotic change. Slightly tender to touch. Patient has full range of motion. Tendons nontender. He was no other warmth, no swelling or other skin changes. There is no signs of necrosis. NEUROLOGICAL: Cranial nerves II through XII grossly intact. Moving all extremities SKIN: Warm, dry, no petechiae, no rashes or lesions otherwise noted. Initial Vital Signs Initial Vital Signs: Vital Signs Temperature 97.5 F L 11/10/24 08:14 Pulse Rate 71 11/10/24 08:14 Respiratory Rate 16 11/10/24 08:14 Blood Pressure 138/66 11/10/24 08:14 Pulse Oximetry 98 11/10/24 08:14 Oxygen Delivery Method Room Air 11/10/24 08:14 Course Vital Signs Vital signs: Vital Signs - 8 hr 11/10/24 10:13 Pulse Rate 66 Respiratory Rate 17 Pulse Oximetry 98 Oxygen Delivery Method Room Air MDM - Wound/Laceration MDM Narrative Medical decision making narrative: Discussed with patient may still has a little bit of cellulitis I think it might be starting to improve although he states it has grown a little bit so we will change his antibiotic to little broader spectrum from cephalexin. He can continue with mupirocin. Discussed with the patient I agree do not think that he was shingles. Did discuss possibility of brown recluse bite he never saw he got poked or had any other injury but if not healing after 2nd round antibiotics would have him follow up for biopsy, etcetera. Patient did have a wound culture and Gram stain at the walk-in clinic but he states there was no drainage was a dry swab that showed no growth, cells or organisms. Discharge Plan Departure Patient Disposition: Home Clinical Impression: Cellulitis of leg, right Instructions: DI for Cellulitis -- Adult Activity Restrictions/Additional Instructions: I would recommend stopping your current antibiotic starting a broader spectrum to see if this improves your symptoms. Continue with daily wound care, can use warm compresses 3-4 times daily. Start the new oral antibiotics today. Prescriptions sent to [facility] in [place]. If the area is not improving but does not appear to be newly infected I would have you follow up after you have completed your antibiotics. Please return for fevers, increasing redness, swelling, new drainage, rapidly worsening pain or other new or concerning changes. Prescriptions: New doxycycline hyclate 100 mg tablet 100 mg PO BID 7 Days Qty: 14 0RF No Action nitroglycerin 0.4 mg tablet, sublingual sublingual ezetimibe 10 mg tablet 10 mg PO DAILY valacyclovir 1 gram tablet 1,000 mg PO TID 7 Days Qty: 21 0RF cephalexin 500 mg capsule 500 mg PO QID 7 Days Qty: 28 0RF mupirocin 2 % ointment 1 applic topical TID Qty: 15 0RF aspirin 81 mg tablet,delayed release (DR/EC) 81 mg PO DAILY triamcinolone acetonide [Nasacort] 55 mcg aerosol,spray 1 spray intranasal DAILY Rx Instructions: administer into each nostril rosuvastatin 20 mg tablet 20 mg PO DAILY Qty: 90 3RF Referrals: Mateo Mello MD [Primary Care Provider] - Stand Alone Forms: Patient Portal/API/Survey
[2024-11-10 10:13] VITALS: PULSE 66; RESP 17; O2SAT 98
== END 2024-11-10 10:14 | disposition home or self-care (01) ==
PROVIDERS: Emergency Provider Emergency Medicine; PCP Internal Medicine
DX: L03.115 Cellulitis of right lower limb (principal)
CPT/HCPCS: 99281; 99283

== ENCOUNTER → 2024-11-15 11:49 | Outpatient (CLI) | payer MEDICARE, SELFPAY ==
[2024-11-15 12:40] LABS: Hematocrit 52.6 % (41-53); Hemoglobin 17.9 g/dL (13.5-17.5); Mean Corpuscular HGB Conc 34.1 % (30-36); Mean Corpuscular Hemoglobin 30.8 PG (26-34); Mean Corpuscular Volume 90.2 fL (80-100); Platelet Count 291 X10^3/uL (150-400); Red Blood Cell Count 5.84 X10^6/uL (4.5-5.9); Red Cell Distribution Width 15.6 % (11.6-14.8)
[2024-11-15 13:02] LABS: Aspartate Aminotransferase 33 IU/L (17-59); BUN Creatinine Ratio 20.3 (6-22); Blood Urea Nitrogen 25 mg/dL (9-20); Calcium 9.6 mg/dL (8.4-10.2); Carbon Dioxide 26 mmol/L (22-32); Chloride 103 mmol/L (98-107); Cholesterol 263 mg/dL (140-199); Estimated Glomerular Filt Rate > 60 mL/min (>60); Glucose 84 mg/dL (70-99); HDL Cholesterol 35 mg/dL (40-60); LDL Cholesterol Calculated 175 mg/dL (<100); Potassium 4.8 mmol/L (3.4-5.1); Sodium 139 mmol/L (137-145); Triglycerides 267 mg/dL (35-150)
[2024-11-15 13:04] LABS: HEMOLYSIS 52 (0-50)
[2024-11-15 13:32] LABS: Prostate Specific Antigen 3.08 ng/mL (0.10-4.00)
[2024-11-15 13:35] LABS: Testosterone 336 ng/dL (71.8-623)
[2024-11-15 13:36] LABS: TSH w/ Reflex to FT4 1.08 uIU/mL (0.47-4.68)
== END ==
PROVIDERS: PCP Internal Medicine; Referring Provider Internal Medicine; Visit Provider Internal Medicine
DX: E78.2 Mixed hyperlipidemia (principal); N40.1 Benign prostatic hyperplasia with lower urinary tract symptoms; I25.10 Atherosclerotic heart disease of native coronary artery without angina pectoris; N13.8 Other obstructive and reflux uropathy; R79.89 Other specified abnormal findings of blood chemistry
CPT/HCPCS: 36415; 80048; 80061; 84153; 84403; 84443; 84450; 85027

== ENCOUNTER 2025-02-07 06:33 | Day surgery (SDC) | payer MEDICARE, SELFPAY ==
--- NOTE | 2025-02-07 | PATH_ITS ---
[facility] Accession Number: [id number] No. of containers..05 Tissue . 01 Material submitted: . PART A: duodenum - DUODENAL BIOPSY PART B: duodenum bulb - DUODENAL BULB PART C: gastrointestinal site - ANTRUM BIOPSY PART D: colon - COLON, ASCENDING POLYP PART E: esophagus, E-G Junction - GE JUNCTION . 01 Diagnosis: A. DUODENUM, BIOPSY: Duodenal mucosa with no diagnostic alteration. Diagnostic features of celiac disease are not identified. . B. DUODENAL BULB, BIOPSY: Duodenal mucosa with no diagnostic alteration. Diagnostic features of celiac disease are not identified. . C. ANTRUM, BIOPSY: Gastric antral-type mucosa with focal goblet cells, see note. Mild chronic inflammation. Mild reactive gastropathy. No Helicobacter organisms identified on routine histology. . D. ASCENDING COLON POLYP, BIOPSY: Tubular adenoma. . E. GASTROESOPHAGEAL JUNCTION, BIOPSY: Gastroesophageal junction mucosa with focal erosion, mixed inflammation, and reactive changes. No intestinal metaplasia or dysplasia is identified. . Note: C. The presence of focal goblet cells could reflect proximity to the pylorus. The differential diagnosis includes a minute focus of intestinal metaplasia. Clinical and endoscopic correlation is recommended. No dysplasia is seen. . E. A PAS stain is negative for fungal organisms (control positive). [facility] 02/16/2025 1321 Local . 01 Electronically signed: . Jayy Mondragon MD, Dermatopathologist NPI- [id number] . 01 Gross description: . Part A: DUODENAL BIOPSY: Received in formalin are 2 fragment(s) of day, soft tissue measuring 0.2 x 0.2 x 0.2 cm to 0.3 x 0.3 x 0.2 cm submitted entirely in 1 cassette(s) Part B: DUODENAL BULB: Received in formalin are 3 fragment(s) of day, soft tissue measuring 0.1 x 0.1 x 0.1 cm to 0.3 x 0.2 x 0.2 cm submitted entirely in 1 cassette(s) Part C: ANTRUM BIOPSY: Received in formalin are 3 fragment(s) of day, soft tissue measuring 0.2 x 0.2 x 0.2 cm to 0.4 x 0.2 x 0.2 cm submitted entirely in 1 cassette(s) Part D: COLON, ASCENDING POLYP: Received in formalin is 1 fragment(s) of day, soft tissue measuring 1.0 x 0.5 x 0.4 cm submitted entirely in 1 cassette(s) Part E: GE JUNCTION: Received in formalin are multiple fragment(s) of day, soft tissue measuring 0.1 x 0.1 x 0.1 cm to 0.4 x 0.3 x 0.2 cm submitted entirely in 1 cassette(s) /MILLI 02/13/2025 0041 Local . 01 Pathologist provided ICD-10: D12.6, K21.9, Z12.11 . 01 CPT . 707578, 838175, 599078, 150852, 449829, 221140 Specimen Comment: A courtesy copy of this report has been sent to [phone] Performed at: [address] [facility] [address], [place], [place] [id number] MD Michael Ruano MD Phone: [phone]
[2025-02-07] MEDS: LACTATED RINGERS 1,000 ML 42 ML IV (07:32)
[2025-02-07 07:33] VITALS: BP 160/86; PULSE 76; RESP 16; TEMP 36.2; O2SAT 97
--- NOTE | 2025-02-07 07:42 | SUR.PREOP ---
pt drank 3 oz at 0630. case will be delayed till 8:30 per anesthesia
--- NOTE | 2025-02-07 07:44 | P.HP_ITS ---
History of Present Illness History of Present Illness Date Patient Seen: 02/07/25 Time Patient Seen: 07:44 Chief complaint: EGD/Colonoscopy Narrative: Yaron is a 69-year-old man who presents for an EGD and colonoscopy due to new onset GERD and colon cancer screening. See the prior office note for details. [facility] Medical History Pulmonary nodule Urinary urgency Peripheral arterial disease Generalized anxiety disorder Cervical radiculopathy Cervicalgia Chronic low back pain Polycythemia (~2017) Ocular migraine Tobacco use Coronary artery disease Allergic rhinitis GERD without esophagitis Mixed hyperlipidemia Surgical History Anesthesia S/P coronary artery stent placement Family History Father Cancer Brother Cancer Social History details: Partner, two grown daughters, Actimize alcohol intake: current Meds Home Medications and Allergies Home Medications ?Medication ?Instructions ?Recorded ?Confirmed ?Type aspirin 81 mg tablet,delayed 81 mg PO DAILY 01/18/22 0 11/15/24 History release triamcinolone acetonide 55 mcg 1 spray intranasal DESTINEE Y 01/18/22 11/15/24 History nasal spray aerosol (Nasacort) mupirocin 2 % topical ointment 1 applic topical TID #1 5 grams 11/05/24 11/15/24 Rx nitroglycerin 0.4 mg sublingual mg sublingual 11/05/24 11/15/24 History tablet Allergies Allergy/AdvReac Type Severity Reaction Status Date / Time erythromycin base (From Allergy Severe Hives Verified 02/07/25 07:24 Erythrocin) rosuvastatin AdvReac Intermediate Diarrhea Verified 02/07/25 07:24 Exam Vital Signs (past 8 hours): - 02/07/25 07:33 Temperature 97.2 F L Pulse Rate 76 Respiratory Rate 16 Blood Pressure 160/86 H Pulse Oximetry 97 Oxygen Delivery Method Room Air Oxygen Delivery Method Room Air Const General: healthy appearing Assessment & Plan Assessment and plan (1) GERD without esophagitis: Status: Acute (2) Colon cancer screening: Status: Acute Plan EGD and colonoscopy Time-Based Coding :: [TOTAL MINUTES] spent with patient and on the chart (including review of chart, obtaining history, exam, reviewing outside data, placing orders, documenting exam and treatment plan, and counseling patient) on [DATE]. PROFEE Bar Turner Document charge(s): No
--- NOTE | 2025-02-07 08:55 | SUR.OPER ---
Endoscope [id number] used for EGD portion of procedure
[2025-02-07 09:23] VITALS: BP 112/59; PULSE 66; RESP 16; TEMP 36.1; O2SAT 94
--- NOTE | 2025-02-07 09:24 | PM.OP.EC ---
Operative Date/Time/Diagnoses Date of procedure: 02/07/25 Time of procedure: 09:24 Pre-op diagnosis: GERD and colon cancer screening Post-op diagnosis: same Procedure & Clinicians Study performed: EGD and colonoscopy Same procedure(s) as scheduled: Yes Surgeon: Harjinder Martinez Anesthesia Type: MAC +/- Procedure Notes Procedure in detail: Surgeon: Harjinder Martinez MD Anesthesia: Denae Main HYDROMETEOROLOGICAL TECHNICIAN Procedure in detail: A timeout was performed. A bite blocked was placed and monitors were attached to the patient. The patient was positioned in the left lateral decubitus position. Sedation was administered. Once the patient was sedated the endoscope was inserted through the bite block and passed through the esophagus and stomach and into the duodenum. Mucosa in the second portion of the duodenum appeared normal and random biopsies were taken with cold forceps. There was a small shallow ulcer in the duodenal bulb and random biopsies were taken from the duodenal bulb mucosa with cold forceps.. We then withdrew the scope into the stomach. There was mild antritis and random biopsies were taken with cold forceps from the antrum. The endoscope was retroflexed and no abnormalities were found. The endoscope was straightned and withdrawn into the esophagus. There was some irregular appearing mucosa at the GE junction and some distal esophagitis and biopsies were taken with cold forceps from the GE junction and distal esophagus. The rest of the esophagus appeared normal. EGD findings: Small shallow ulcer in the duodenal polyp, mild antritis and irregular mucosa around the GE junction Next we repositioned the patient for a colonoscopy. A digital rectal exam was performed and was normal. The colonoscope was inserted and advanced to the cecum. The appendiceal orifice was identified and photographed. The scope was slowly withdrawn over greater than 6 minutes. There was 5 mm polyp in the ascending colon removed with a cold snare. The scope was retroflexed in the rectum and no other abnormalities were found. Colonoscopy findings: 5 mm polyp in the ascending colon Total procedural EBL: 5 mL Scope withdrawal time: 9 minutes Sedation minutes: 26 minutes Post-procedure Disposition: PACU
[2025-02-07 09:28] VITALS: BP 111/55; PULSE 66; RESP 16; O2SAT 97
[2025-02-07 09:33] VITALS: BP 118/55; PULSE 70; RESP 15; O2SAT 97
[2025-02-07 09:35] VITALS: BP 146/65; PULSE 71; RESP 10; O2SAT 99
[2025-02-07 09:47] VITALS: BP 160/76; PULSE 76; RESP 20; O2SAT 98
== END 2025-02-07 09:49 | disposition home or self-care (01) ==
PROVIDERS: PCP Internal Medicine; Referring Provider Surgery; Visit Provider Surgery
PROC: 0DJ08ZZ Inspection of Upper Intestinal Tract, Via Natural or Artificial Opening Endoscopic (ICD-10-PCS; CPT 45385; principal; 2025-02-07 07:45)
PROC: 0DJD8ZZ Inspection of Lower Intestinal Tract, Via Natural or Artificial Opening Endoscopic (ICD-10-PCS; CPT 45378; 2025-02-07 07:45)
DX: Z12.11 Encounter for screening for malignant neoplasm of colon (principal); K21.9 Gastro-esophageal reflux disease without esophagitis; K29.50 Unspecified chronic gastritis without bleeding; D12.2 Benign neoplasm of ascending colon
CPT/HCPCS: 45385; 43239; J2704

== ENCOUNTER → 2025-06-03 16:41 | Outpatient (CLI) | payer MEDICARE, SELFPAY ==
[2025-06-03 18:08] LABS: Hematocrit 52.0 % (41-53); Hemoglobin 17.7 g/dL (13.5-17.5); Mean Corpuscular HGB Conc 34.0 % (30-36); Mean Corpuscular Hemoglobin 30.4 PG (26-34); Mean Corpuscular Volume 89.5 fL (80-100); Platelet Count 303 X10^3/uL (150-400)
[2025-06-03 18:37] LABS: Alanine Aminotransferase 24 IU/L (<50); Albumin 4.4 g/dL (3.5-5.0); Albumin Globulin Ratio 1.4 (1.0-2.8); Alkaline Phosphatase 77 U/L (38-126); Blood Urea Nitrogen 23 mg/dL (9-20); Calcium 9.6 mg/dL (8.4-10.2); Carbon Dioxide 27 mmol/L (22-32); Chloride 103 mmol/L (98-107); Cholesterol 293 mg/dL (140-199); Estimated Glomerular Filt Rate > 60 mL/min (>60); Globulin 3.1 g/dL (1.7-4.1); Glucose 71 mg/dL (70-99); HDL Cholesterol 46 mg/dL (40-60); HEMOLYSIS 19 (0-50); Potassium 5.2 mmol/L (3.4-5.1); Sodium 138 mmol/L (137-145); Total Protein 7.5 g/dL (6.3-8.2); Triglycerides 271 mg/dL (35-150)
== END ==
PROVIDERS: PCP Internal Medicine; Referring Provider Internal Medicine; Visit Provider Internal Medicine
DX: I25.10 Atherosclerotic heart disease of native coronary artery without angina pectoris (principal); E78.2 Mixed hyperlipidemia; G45.9 Transient cerebral ischemic attack, unspecified
CPT/HCPCS: 36415; 80053; 80061; 85027

== ENCOUNTER → 2025-06-14 14:06 | Outpatient (CLI) | payer MEDICARE, SELFPAY ==
--- NOTE | 2025-06-14 14:08 | DI.CT.S_ITS ---
PROCEDURE: CT ANGIO HEAD AND NECK INDICATIONS: tia TECHNIQUE: After the administration of intravenous contrast, 1 mm thick sections acquired from the aortic arch through the [place] of [place]. 3-dimensional vrwjwdg-tendjqthl-vqdxwitfgp (MIP) and/or volume rendering reformats were acquired of the central intracranial vasculature and neck separately. For radiation dose reduction, the following was used: automated exposure control, adjustment of mA and/or kV according to patient size. COMPARISON: [facility], CT, CT ANGIO HEAD AND NECK, 12/14/2023, 11:11. FINDINGS: Image quality: Diagnostic. Cerebral CT Angiogram: Internal carotid arteries: No acute findings. Intracranial ICA are patent with no significant stenosis. No occlusion. No aneurysm. Anterior cerebral arteries: Unremarkable. No significant stenosis. No occlusion. No aneurysm. Middle cerebral arteries: Unremarkable. No significant stenosis. No occlusion. No aneurysm. Posterior cerebral arteries: Unremarkable. No significant stenosis. No occlusion. No aneurysm. Basilar artery: Diminutive with areas of high-grade stenosis and short segment occlusion (5/118, /). Vertebral arteries: Unremarkable as visualized. Dural venous sinuses: Unremarkable given phase of enhancement. Other: Arterial phase appearance of the brain parenchyma is unremarkable. Neck CT Angiogram: Internal carotid arteries: Coarse calcifications of the bifurcations with less than 50% stenosis of the proximal ICAs bilaterally. No dissection or occlusion. Common carotid arteries: Unremarkable. No significant stenosis. No dissection or occlusion. External carotid arteries: Unremarkable. No occlusion. Vertebral arteries: Moderate stenosis of the origins bilaterally. The left vertebral artery is dominant. The right vertebral artery is diminutive with multiple areas of loss of opacification, new compared to prior. Aortic Arch and Mediastinum: Partially visualized aortic arch unremarkable without evidence of aneurysm. Moderate stenosis of the origin of the bilateral subclavian arteries is redemonstrated.. Other: Similar appearance of 1.8 cm right upper lobe subsolid nodule with solid component measuring approximately 5 mm. Few additional smaller ground- glass/subsolid nodules are seen. Emphysematous changes are present. 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 Remainder of the intracranial arteries are patent and normal in caliber. Diminutive appearance of the right vertebral artery with occlusion of the mid to distal aspect, new compared to prior. 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 Attempts were made to contact the ordering provider by the number provided and were unsuccessful. Findings were added to a worklist to be urgently communicated to the ordering provider. Any quantitative measurements of stenosis were performed using NASCET criteria. Dictated by: Wayne Suarez M.D. on 06/14/2025 at 14:51 Approved by: Wayne Suarez M.D. on 06/14/2025 at 15:05
== END ==
LOC: CT 14:07
PROVIDERS: PCP Internal Medicine; Referring Provider Internal Medicine; Visit Provider Internal Medicine
DX: G45.9 Transient cerebral ischemic attack, unspecified (principal); I65.1 Occlusion and stenosis of basilar artery; I65.01 Occlusion and stenosis of right vertebral artery; I70.8 Atherosclerosis of other arteries
CPT/HCPCS: 70496; 70498; Q9967

== ENCOUNTER 2025-06-14 16:39 | Emergency (ER) | payer MEDICARE, SELFPAY ==
[2025-06-14] VITALS (10 sets, daily range): BP systolic 151–201; BP diastolic 68–91; PULSE 67–86; RESP 18; TEMP 36.2; O2SAT 94–97; BMI 24.3
--- NOTE | 2025-06-14 16:54 | ED_ITS ---
HPI - Neuro Symptoms/Deficit General Chief Complaint: Neuro Symptoms/Deficit Stated Complaint: Sent from Phys; occlusion in the brain, stroke Time Seen by Provider: 06/14/25 16:53 Source: patient Mode of arrival: Ambulatory History of Present Illness HPI Narrative: 69-year-old male patient with a history of tobacco smoking who had a headache and blurry vision on 06/01/2025 that lasted 15-20 minutes. He saw his provider 2 days later and a CTA head and neck were ordered. He has had no symptoms since then. The CT head and neck was performed today and the results are abnormal and the patient's primary care provider told him to come to the ER to address the imaging abnormalities. On Anticoagulants: No (on plavix) Related Data Home Medications ?Medication ?Instructions ?Recorded ?Confirmed aspirin 81 mg tablet,delayed 81 mg PO DAILY 01/18/22 1 08/14/24 release triamcinolone acetonide 55 mcg 1 spray intranasal DESTINEE Y 01/18/22 06/13/25 nasal spray aerosol (Nasacort) nitroglycerin 0.4 mg sublingual mg sublingual 11/05/24 06/13/25 tablet Previous Rx's ?Medication ?Instructions ?Recorded mupirocin 2 % topical ointment 1 applic topical TID #1 5 grams 11/05/24 methocarbamol 750 mg tablet 750 mg PO BEDTIME #14 tabs 02/20/25 atorvastatin 40 mg tablet 40 mg PO DAILY #90 tabs 05/12 11/02 clopidogrel 75 mg tablet 75 mg PO DAILY #21 tabs 05/12 11/02 Allergies Allergy/AdvReac Type Severity Reaction Status Date / Time erythromycin base (From Allergy Severe Hives Verified 06/13/25 09:15 Erythrocin) rosuvastatin AdvReac Intermediate Diarrhea Verified 06/13/25 09:15 Review of Systems Review of Systems ROS Unobtainable: All systems reviewed & are unremarkable except as noted in HPI and below Neurologic Neurologic: Reports as per HPI Hematologic/Lymphatic On Anticoagulants: No (on plavix) Patient History Medical History Allergic rhinitis Cervical radiculopathy Cervicalgia Chronic low back pain Coronary artery disease Generalized anxiety disorder GERD without esophagitis History of colonic polyps History of tobacco use disorder Mixed hyperlipidemia Ocular migraine Peripheral arterial disease Polycythemia (~2017) Pulmonary nodule Tobacco use Urinary urgency Surgical History Anesthesia S/P coronary artery stent placement Family History Father Cancer Brother Cancer Social History details: Partner, two grown daughters, [employer] company Smoking Status: Current every day smoker alcohol intake: current Smoking Status: Current every day smoker tobacco type: cigarettes Exam Narrative Exam Narrative: General: Alert and conversant. No distress. Appears well nourished and well hydrated Craniofacial: No evidence of trauma. Nontender and no swelling. Eyes: PERRLA EOMI conjunctiva clear HEENT: Oropharynx clear with no swelling, exudate or asymmetry of the pharynx. Nares clear. No sinus tenderness Neck: No tenderness or adenopathy. No meningismus. No JVD Lungs: Clear to auscultation with good air movement. No wheezing, rales or rhonchi. No respiratory distress Cardiac: Regular rate and rhythm with no appreciable murmur or gallop Neuro: Alert and oriented. Cranial nerves, motor, sensory and cerebellar all grossly intact. No focal deficit Skin: Warm and normal color. No rashes Psychological: Normal affect and interaction. No evidence of delusion or psychosis. Normal mood. Initial Vital Signs Initial Vital Signs: Vital Signs Temperature 97.2 F L 06/14/25 16:45 Pulse Rate 86 06/14/25 16:45 Respiratory Rate 18 06/14/25 16:45 Blood Pressure 201/91 H 06/14/25 16:45 Pulse Oximetry 97 06/14/25 16:45 Oxygen Delivery Method Room Air 06/14/25 16:45 Course Vital Signs Vital signs: Vital Signs - 8 hr 06/14/25 16:45 06/14/25 16:50 06/14/25 16:50 Temperature 97.2 F L Pulse Rate 86 78 Respiratory Rate 18 Blood Pressure 201/91 H 187/84 H Pulse Oximetry 97 94 Oxygen Delivery Method Room Air 06/14/25 17:00 06/14/25 17:00 06/14/25 17:30 Temperature Pulse Rate 76 Respiratory Rate Blood Pressure 171/68 H 158/73 H Pulse Oximetry 95 Oxygen Delivery Method 06/14/25 17:30 06/14/25 18:00 06/14/25 18:00 Temperature Pulse Rate 71 69 Respiratory Rate Blood Pressure 165/76 H Pulse Oximetry 94 96 Oxygen Delivery Method 06/14/25 18:30 06/14/25 18:31 06/14/25 18:31 Temperature Pulse Rate 67 67 Respiratory Rate Blood Pressure 151/71 H Pulse Oximetry 96 96 Oxygen Delivery Method 06/14/25 19:00 06/14/25 19:00 06/14/25 19:30 Temperature Pulse Rate 68 67 Respiratory Rate Blood Pressure 164/78 H Pulse Oximetry 96 95 Oxygen Delivery Method 06/14/25 19:30 06/14/25 19:54 06/14/25 19:54 Temperature Pulse Rate 70 Respiratory Rate Blood Pressure 164/79 H 162/75 H Pulse Oximetry 96 Oxygen Delivery Method MDM - Neuro Symptoms/Deficit Imaging Data CTA - brain/neck: Radiologist's Impression: Outpatient from earlier today: IMPRESSION: 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 Remainder of the intracranial arteries are patent and normal in caliber. Diminutive appearance of the right vertebral artery with occlusion of the mid to distal aspect, new compared to prior. 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 Attempts were made to contact the ordering provider by the number provided and were unsuccessful. Findings were added to a worklist to be urgently communicated to the ordering provider. [facility] Narrative Medical decision making narrative: 18:50 I discussed the patient's symptoms, care and CTA results with Dr. Irving, stroke team neurologist at the [facility]. She reviewed the CTA of the head and neck and her advice given the length of time since his symptoms is outpatient management. No need for admission or intervention urgently. Patient needs to increase his atorvastatin from 40-80 mg given his LDL level of 193. Also continue dual antiplatelet therapy And discontinue smoking.. Outpatient echocardiogram and follow up with Neurology either at the [facility] or [facility] or as determined by his primary care physician. I discussed these recommendations with the patient. He will increase his atorvastatin and continue the antiplatelet therapy. Follow up with primary care for echocardiogram and Neurology consult. Discharge Plan Departure Patient Disposition: Home Clinical Impression: Binocular visual disturbance Instructions: DI for Transient Ischemic Attack, How to Quit Tobacco Products Activity Restrictions/Additional Instructions: Assessment: Brief episode of headache and visual disturbance 1-2 weeks ago which may have been a TIA versus ocular migraine. Neurology has given their recommendations. Partial stenosis found on some of the arteries on CT angiogram of the head and neck Plan: Continue Plavix and aspirin daily. Increase atorvastatin to 80 mg daily for elevated LDL levels. Tobacco cessation is crucial. See handout and work on that. Outpatient echocardiogram which your primary care provider can order. Follow up with Neurology. [facility] neurology is willing to see you but you may also see a closer neurologist such as [facility]. Your doctor can arrange the referral. Monitor blood pressure and follow up with your doctor to see if you need treatment for hypertension. Return to the ER if worse Prescriptions: No Action nitroglycerin 0.4 mg tablet, sublingual sublingual mupirocin 2 % ointment 1 applic topical TID Qty: 15 0RF aspirin 81 mg tablet,delayed release (DR/EC) 81 mg PO DAILY triamcinolone acetonide [Nasacort] 55 mcg aerosol,spray 1 spray intranasal DAILY Rx Instructions: administer into each nostril methocarbamol 750 mg tablet 750 mg PO BEDTIME Qty: 14 0RF atorvastatin 40 mg tablet 40 mg PO DAILY Qty: 90 3RF clopidogrel 75 mg tablet 75 mg PO DAILY Qty: 21 0RF Referrals: Mateo Mello MD [Primary Care Provider, Internal Medicine] Stand Alone Forms: Patient Portal/API
--- NOTE | 2025-06-14 18:07 | PC.NURSE ---
Pt currently is at baseline, no new or ongoing sx. Pt taking meds as ordered.
== END 2025-06-14 19:55 | disposition home or self-care (01) ==
PROVIDERS: Emergency Provider Emergency Medicine; PCP Internal Medicine
DX: H53.30 Unspecified disorder of binocular vision (principal)
CPT/HCPCS: 99281